=== PATIENT | female | born 1985 | race Caucasian/White ===

== ENCOUNTER 2017-05-13 20:55 | Inpatient (IN) | payer OTHER ==
[2017-05-13] MEDS ORDERED: AMPICILLIN 2 GM/100 ML BAG (PRE-DOCKED) IVPB ONE (21:00)
[2017-05-13] MEDS ORDERED: DEXTROSE 5%-LACTATED RINGERS 1,000 ML IV SCH (21:00)
[2017-05-13] MEDS ORDERED: DINOPROSTONE 10 MG VAGINAL SUPPOSITORY VG ONE (22:30)
[2017-05-13 22:53] VITALS: BMI 46.2
[2017-05-13] MEDS ORDERED: TUBERCULIN PPD 5 TU/0.1ML SYRINGE (IN PATIENT USE ONLY) ID ONE (23:30)
[2017-05-14 00:29] LABS: INR 1.01 (0.82-1.09); PROTHROMBIN TIME (PATIENT) 11.1 SEC (9.98-11.88)
[2017-05-14 00:32] LABS: ACTIVATED PTT 24.6 SECONDS (26.9-34.4)
[2017-05-14 00:41] LABS: BASOPHIL 0.3 % (0-2.0); EOSINOPHIL 1.5 % (0-4.5); MCH 31.1 pg (25.7-33.7); MCHC 33.7 g/dl (32.0-36.0); MEAN CELL VOLUME 92.1 fl (80-96); MEAN PLT VOLUME 10.5 fl (7.5-11.1); NEUTROPHILS 70.5 % (42.8-82.8); PLATELET COUNT 229 K/MM3 (134-434); RDW 13.4 % (11.6-15.6); WHITE BLOOD COUNT 7.2 K/mm3 (4.0-10.0)
[2017-05-14 00:51] LABS: ANION GAP 11 (8-16); CALCIUM 8.2 mg/dL (8.5-10.1); CO2 23 mmol/L (21-32); CREATININE 0.6 mg/dL (0.55-1.02); GLUCOSE,RANDOM 98 mg/dL (74-106)
[2017-05-14] MEDS: AMPICILLIN (PRE-DOCKED) 1 GM/100 ML BAG IVPB SCH ×4 (04:00→19:24)
[2017-05-14] MEDS ORDERED: PROMETHAZINE HCL 25 MG/1 ML VIAL IVPUSH ONE (05:00)
[2017-05-14] MEDS ORDERED: BUTORPHANOL TARTRATE 1 MG/ML VIAL IVPUSH ONE (05:00)
[2017-05-14] MEDS: LACTATED RINGERS SOLUTION 1,000 ML IV SCH ×2 (06:30)
[2017-05-14 08:51] LABS: SGOT/AST 15 U/L (15-37); SGPT/ALT 17 U/L (12-78); URIC ACID 4.6 mg/dL (2.6-7.2)
[2017-05-14] MEDS ORDERED: TUBERCULIN PPD 5 TU/0.1ML SYRINGE (IN PATIENT USE ONLY) ID ONE (09:00)
--- NOTE | 2017-05-14 09:43 | HP ---
Past Medical History - Admission Chief Complaint: Hypertension and Gestational Diabetes on diet in History of Present Illness: 31 yo G P0 EDC EGA 38.2 weeks with obesity Hypertension gestational DM on diet admitted for cervidil induction at 38 weeks on 05/13/16 History Source: Patient - Past Medical History ...: 2 ...Para: 0 ...Term: 0 ...: 0 ...Spon : 0 ...Induced : 1 ...Multiple Gestation: 0 ...LMP: 08/13/16 ... Weeks Gestation by Dates: 39.0 ...EDC by Dates: 05/20/17 ...EDC by Sono: 05/20/17 - Smoking History Smoking history: Never smoked Have you smoked in the past 12 months: No - Alcohol/Substance Use Hx Alcohol Use: No Home Medications - Allergies Allergies/Adverse Reactions: Allergies Allergy/AdvReac Type Severity Reaction Status Date / Time No Known Drug Allergies Allergy Verified 05/14/17 04:29 - Home Medications Home Medications: Ambulatory Orders Aspirin [Ecotrin] 1 tab PO DAILY 05/14/17 Labetalol HCl [Normodyne -] 200 mg PO BID 05/14/17 Vit/Iron Fumarate/FA [ Tablet] 1 each PO DAILY 05/14/17 Review of Systems - Review of Systems Constitutional: reports: No Symptoms Eyes: reports: No Symptoms HENT: reports: No Symptoms Neck: reports: No Symptoms Cardiovascular: reports: No Symptoms Respiratory: reports: No Symptoms Gastrointestinal: reports: No Symptoms Genitourinary: reports: No Symptoms Breasts: reports: No Symptoms Reported Musculoskeletal: reports: No Symptoms Integumentary: reports: No Symptoms Neurological: reports: No Symptoms Endocrine: reports: No Symptoms Hematology/Lymphatic: reports: No Symptoms Psychiatric: reports: No Symptoms Physical Exam - Maternity Vital Signs: Vital Signs Temperature 98.1 F 05/14/17 04:00 Pulse Rate 87 05/14/17 08:00 Respiratory Rate 20 05/14/17 08:00 Blood Pressure 152/92 05/14/17 08:00 O2 Sat by Pulse Oximetry (%) Constitutional: Yes: Well Nourished, No Distress - Abdominal Exam/OB Number of Fetuses: Single Presentation: Vertex Category: I - Vaginal Exam/OB Presentation: Vertex/Position - Labs Lab Results: CBC, BMP 05/13/17 23:30 05/13/17 23:30 Problem List - Problems (1) Hypertension affecting in third trimester Code(s): O16.3 - UNSPECIFIED MATERNAL HYPERTENSION, THIRD TRIMESTER (2) Obesity affecting in third trimester Code(s): O99.213 - OBESITY COMPLICATING , THIRD TRIMESTER (3) Gestational diabetes, diet controlled Code(s): O24.410 - GESTATIONAL DIABETES MELLITUS IN , DIET CONTROLLED Qualifiers: Trimester: third trimester Qualified Code(s): O24.410 - Gestational diabetes mellitus in , diet controlled Assessment/Plan obesity in gestational DM iup at 38.2 week Cat 1 Early Labor Plan Will start pitocin after cervidil
[2017-05-14 10:03] LABS: URINE APPEARANCE CLEAR; URINE BILIRUBIN NEGATIVE (NEGATIVE); URINE BLOOD 2+ (NEGATIVE); URINE COLOR YELLOW; URINE GLUCOSE (UA) NEGATIVE (NEGATIVE); URINE KETONE 1+ (NEGATIVE); URINE LEUK ESTERASE NEGATIVE (NEGATIVE); URINE NITRITE NEGATIVE (NEGATIVE); URINE PROTEIN NEGATIVE (NEGATIVE); URINE UROBILINOGEN NEGATIVE mg/dL (0.2-1.0)
[2017-05-14] MEDS: LABETALOL HCL 200 MG TABLET (FP) PO SCH ×2 (10:05→21:45)
[2017-05-14 11:44] LABS: URINE MUCUS RARE; URINE RBC 3 /hpf (0-3); URINE WBC 2 /hpf (3-5)
--- NOTE | 2017-05-14 13:55 | PN ---
Ante-Partal Exam - Subjective Subjective: Pt desires CS unable to tolerate contraction and not making progress Due to elevated BP DM HTn and elevated temp 99.6 Vital Signs: Vital Signs Temperature 99.0 F 05/14/17 12:07 Pulse Rate 79 05/14/17 12:07 Respiratory Rate 20 05/14/17 12:07 Blood Pressure 142/98 05/14/17 12:07 O2 Sat by Pulse Oximetry (%) Bleeding: No Headache: No Visual changes: No Right upper quadrant pain: No - Contractions Contractions: Yes Regularity: Irregular - Exam during Labor Category: I Monitor Accelerations: Present Monitor Decelerations: None Exam: Vaginal Dilatation (cm): ft Effacement (%): 50 Amniotic Membrane Status: Intact Presentation: Vertex Station: -3 - Intrapartum Hemorrhage Risk Medium Risk Factors: Chorioamniomitis Risk Score: 1 Risk Level: Medium Risk - Assessment/Plan Assessment/Plan: IUp at 38 weeks gestational DM Hypertension on Labetalol 400 BID Failed induction Obesity Plan primary CS Consult with renal after delivery
[2017-05-14] MEDS ORDERED: CITRIC ACID/SODIUM CITRATE 30 ML UNIT-DOSE CUP PO ONE (14:20)
[2017-05-14] MEDS ORDERED: ELECTROLYTE-148 SOLN 1,000 ML IV SCH (14:30)
[2017-05-14] MEDS ORDERED: AMPICILLIN NA/SULBACTAM NA 100 ML IVPB SCH (15:00)
[2017-05-14] MEDS ORDERED: METHYLERGONOVINE MALEATE 0.2 MG/1 ML AMP IM PRN (15:18)
[2017-05-14] MEDS ORDERED: IBUPROFEN 600 MG TABLET (FP) PO PRN ×2 (15:18→17:43)
[2017-05-14] MEDS ORDERED: OXYTOCIN 20 UNITS in 0.9% NS 1,000 ML IV SCH (15:30)
--- NOTE | 2017-05-14 17:28 | OP ---
Operative Note - Note: Operative Date: 05/14/17 Pre-Operative Diagnosis: Chronic Hypertension. Gestation DM diet. IUP at 38 week. Obesity. failed induction Operation: Primary low transverse Section. Abdominal myomectomy Findings: Live infant delivered myomas delivered Post-Operative Diagnosis: Same as Pre-op Surgeon: Kay Douglas Psychologist: David Mcgovern Anesthesia: Spinal Estimated Blood Loss (mls): 500 Operative Report Dictated: Yes
[2017-05-14] MEDS ORDERED: ONDANSETRON 4 MG/2 ML VIAL IVPB PRN (17:43)
[2017-05-14 18:42] LABS: VENOUS BLOOD GAS HCO3 24.9 meq/L (19-25); VENOUS PH 7.36 (7.32-7.42)
[2017-05-14 18:44] LABS: ARTERIAL BLOOD GAS BASE EXCESS -0.8 meq/l (-2-2); ARTERIAL BLOOD GAS HCO3 26.5 meq/L (22-26)
[2017-05-14 18:45] LABS: PT. ON O2? NO
[2017-05-14 18:46] LABS: ARTERIAL BLD GAS O2 SATURATION 17.9 % (90-98.9); ARTERIAL BLOOD GAS PO2 14.6 mmHg (80-100)
[2017-05-14] MEDS: AMPICILLIN NA/SULBACTAM NA 1.5 GM in SODIUM CHLORIDE 100 ML IVPB SCH (20:42)
[2017-05-14] MEDS ORDERED: ACETAMINOPHEN 1000 MG/100 ML VIAL (NON FORMULARY) IVPB ONE (21:33)
[2017-05-14] MEDS ORDERED: IBUPROFEN 800 MG/8 ML IJ IVPB ONE (21:34)
[2017-05-15] MEDS: AMPICILLIN NA/SULBACTAM NA 1.5 GM in SODIUM CHLORIDE 100 ML IVPB SCH ×3 (07:46→15:06)
[2017-05-15 08:12] LABS: BASOPHIL 0.4 % (0-2.0); EOSINOPHIL 0.2 % (0-4.5); MCH 30.2 pg (25.7-33.7); MCHC 32.7 g/dl (32.0-36.0); MEAN CELL VOLUME 92.4 fl (80-96); MEAN PLT VOLUME 10.3 fl (7.5-11.1); NEUTROPHILS 73.9 % (42.8-82.8); PLATELET COUNT 173 K/MM3 (134-434); RDW 13.6 % (11.6-15.6); WHITE BLOOD COUNT 11.6 K/mm3 (4.0-10.0)
[2017-05-15] MEDS: LABETALOL HCL 200 MG TABLET (FP) PO SCH ×2 (09:05→22:29)
--- NOTE | 2017-05-15 10:49 | PN ---
Progress Note, Physician Chief Complaint: Pt. pain controlled, no ASHRAF, not yet ambulating or voiding. No anesthesia complaints. - Current Medication List Current Medications: Active Medications Acetaminophen (Tylenol -) 650 mg PO Q4H PRN PRN Reason: FEVER OR PAIN Bisacodyl (Dulcolax Suppository -) 10 mg RC PRN PRN PRN Reason: CONSTIPATION Diphenhydramine HCl (Benadryl Injection -) 25 mg IVPUSH Q4H PRN PRN Reason: Pruritis Last Admin: 05/14/17 22:07 Dose: 25 mg Diphtheria/Tetanus/Acell Pertussis (Boostrix -) 0.5 ml IM .ONCE ONE Stop: 05/16/17 10:01 Oxytocin/Sodium Chloride (Normal Saline+20 Units Oxytocin -) 1,000 mls @ 125 mls/hr IV ASDIR ALIDA Last Admin: 05/14/17 18:41 Dose: 125 mls/hr Ampicillin Sodium/Sulbactam (Sodium 1.5 gm/ Sodium Chloride) 100 mls @ 200 mls/ hr IVPB Q6H-IV ALIDA Stop: 05/15/17 20:59 Last Admin: 05/15/17 08:08 Dose: 200 mls/hr Ibuprofen (Motrin -) 600 mg PO Q4H PRN PRN Reason: PAIN Labetalol HCl (Normodyne -) 200 mg PO BID ALIDA Last Admin: 05/15/17 09:05 Dose: 200 mg Methylergonovine Maleate (Methergine Injection -) 0.2 mg IM Q4H PRN PRN Reason: Excessive Bleeding (L&D) Oxycodone HCl (Roxicodone -) 5 mg PO Q4H PRN PRN Reason: PAIN LEVEL 1-5 Oxycodone HCl (Roxicodone -) 10 mg PO Q4H PRN PRN Reason: PAIN LEVEL 6-10 Simethicone (Mylicon -) 80 mg PO Q4H PRN PRN Reason: GAS - Objective Vital Signs: Vital Signs Temperature 98.0 F 05/15/17 00:00 Pulse Rate 82 05/15/17 00:00 Respiratory Rate 18 05/15/17 08:00 Blood Pressure 108/64 05/15/17 00:00 O2 Sat by Pulse Oximetry (%) 96 08/22/17 19:05 Constitutional: Yes: Well Nourished, No Distress, Calm Musculoskeletal: Yes: WNL Neurological: Yes: WNL, Alert, Oriented ...Motor Strength: WNL Labs: CBC, BMP 05/15/17 07:00 05/13/17 23:30 INR, PTT INR 1.01 (0.82-1.09) 05/13/17 23:30 Assessment/Plan POD#1 s/p under spinal with duramorph. Doing well. D/C from anesthesia care once she voids and ambulates.
[2017-05-15] MEDS: oxyCODONE HCL 5 MG TABLET PO PRN ×3 (10:56→22:29)
[2017-05-15] MEDS: SIMETHICONE 80 MG TAB.CHEW (FP) PO PRN ×2 (10:57→17:32)
[2017-05-15] MEDS: ACETAMINOPHEN 325 MG TABLET (FP) PO PRN ×3 (10:57→22:30)
[2017-05-15] MEDS ORDERED: BISACODYL 10 MG SUPP.RECT RC PRN (15:18)
[2017-05-16] MEDS: ACETAMINOPHEN 325 MG TABLET (FP) PO PRN ×2 (05:08→18:24)
[2017-05-16] MEDS: oxyCODONE HCL 5 MG TABLET PO PRN ×2 (05:09→18:23)
--- NOTE | 2017-05-16 07:48 | PN ---
Post Progress Note - Subjective Subjective: Pt seen this a.m. briefly - no complaints. POD#2 s/p primary delivery for gHTN. BPs have been in normal to mild range since delivery. Pt tolerating diet, ambulating and voiding. No CP/SOB/F/C/ASHRAF. Type of Delivery: Primary C/S Vital Signs: Vital Signs Temperature 98.1 F 05/16/17 06:00 Pulse Rate 72 05/16/17 06:00 Respiratory Rate 18 05/16/17 06:00 Blood Pressure 139/97 05/16/17 06:00 O2 Sat by Pulse Oximetry (%) 98 05/15/17 21:00 Uterus: Yes: Fundus Firm Incision: Yes: Sutures intact Abdomen/GI: Yes: Abdomen soft, Passing flatus, Tolerating PO Lochia: Yes: Rubra Lochia, amount: Small Extremities: No: Calf tenderness Perineum: Yes: Intact Activity: Ambulating - Labs Labs: CBC WBC 11.6 K/mm3 (4.0-10.0) H D 05/15/17 07:00 RBC 3.02 M/mm3 (3.60-5.2) L 05/15/17 07:00 Hgb 9.1 GM/dL (10.7-15.3) L D 05/15/17 07:00 Hct 27.9 % (32.4-45.2) L 05/15/17 07:00 MCV 92.4 fl (80-96) 05/15/17 07:00 MCH 30.2 pg (25.7-33.7) 05/15/17 07:00 MCHC 32.7 g/dl (32.0-36.0) 05/15/17 07:00 RDW 13.6 % (11.6-15.6) 05/15/17 07:00 Plt Count 173 K/MM3 (134-434) D 05/15/17 07:00 MPV 10.3 fl (7.5-11.1) 05/15/17 07:00 Neutrophils % 73.9 % (42.8-82.8) 05/15/17 07:00 Lymphocytes % 17.8 % (8-40) 05/15/17 07:00 Monocytes % 7.7 % (3.8-10.2) 05/15/17 07:00 Eosinophils % 0.2 % (0-4.5) D 05/15/17 07:00 Basophils % 0.4 % (0-2.0) 05/15/17 07:00 Retic Count 1.57 % (0.5-1.5) H 05/14/17 08:25 Haptoglobin 165 mg/dL (34-200) 05/14/17 09:00 Problem List - Problems (1) Hypertension affecting in third trimester Code(s): O16.3 - UNSPECIFIED MATERNAL HYPERTENSION, THIRD TRIMESTER (2) Obesity affecting in third trimester Code(s): O99.213 - OBESITY COMPLICATING , THIRD TRIMESTER (3) delivery delivered Code(s): O82 - ENCOUNTER FOR DELIVERY WITHOUT INDICATION Assessment/Plan 31 y/o POD#2 s/p primary delivery with gestational hypertension - AFVSS - gHTN - BP overall normal/mild range since delivery, on Labetalol 200 BID, continue to monitor, asymptomatic - regular diet, encourage ambulation - routine care
[2017-05-16] MEDS: LABETALOL HCL 200 MG TABLET (FP) PO SCH ×2 (09:46→22:12)
[2017-05-16] MEDS: ENOXAPARIN NA (PORCINE) 40 MG/0.4 ML DISP.SYRIN SQ SCH (09:48)
[2017-05-16] MEDS ORDERED: DIPHTH,PERTUSS(ACELL),TET 0.5 ML DISP.SYRIN IM ONE (10:00)
[2017-05-16] MEDS: DIPHTH,PERTUSS(ACELL),TET 0.5 ML DISP.SYRIN IM ONE ×2 (14:43→14:46)
[2017-05-16] MEDS: SIMETHICONE 80 MG TAB.CHEW (FP) PO PRN (18:23)
[2017-05-17 07:54] LABS: BASOPHIL 1.1 % (0-2.0); EOSINOPHIL 3.5 % (0-4.5); MCH 30.8 pg (25.7-33.7); MCHC 33.4 g/dl (32.0-36.0); MEAN CELL VOLUME 92.2 fl (80-96); MEAN PLT VOLUME 9.7 fl (7.5-11.1); NEUTROPHILS 63.8 % (42.8-82.8); PLATELET COUNT 201 K/MM3 (134-434); RDW 13.5 % (11.6-15.6); WHITE BLOOD COUNT 7.3 K/mm3 (4.0-10.0)
[2017-05-17] MEDS: ACETAMINOPHEN 325 MG TABLET (FP) PO PRN ×2 (09:10→22:23)
[2017-05-17] MEDS: oxyCODONE HCL 5 MG TABLET PO PRN ×2 (09:10→22:22)
[2017-05-17] MEDS: SIMETHICONE 80 MG TAB.CHEW (FP) PO PRN ×2 (09:10→22:21)
[2017-05-17] MEDS: LABETALOL HCL 200 MG TABLET (FP) PO SCH ×2 (09:11→21:18)
[2017-05-17] MEDS: ENOXAPARIN NA (PORCINE) 40 MG/0.4 ML DISP.SYRIN SQ SCH (09:11)
--- NOTE | 2017-05-17 09:12 | PN ---
Post Progress Note - Subjective Subjective: Pt seen/evaluated and doing well. Pain controlled with medications. BP stable on labetalol. Denies ASHRAF/ruq pain/changes in vision/CP/SOB. Ambulating, voiding , passing flatus. Type of Delivery: Primary C/S Vital Signs: Vital Signs Temperature 98.3 F 05/16/17 22:00 Pulse Rate 74 05/17/17 06:00 Respiratory Rate 18 05/17/17 06:00 Blood Pressure 144/81 05/17/17 06:00 O2 Sat by Pulse Oximetry (%) 98 05/15/17 21:00 Uterus: Yes: Fundus Firm, Fundus below umbilicus Incision: Yes: Sutures intact Abdomen/GI: Yes: Abdomen soft, Passing flatus, Tolerating PO. No: Tender Lochia: Yes: Rubra Lochia, amount: Small Extremities: Yes: Calves non-tender, Edema (Trace b/l LE Edema, non pitting) Perineum: Yes: Intact Activity: Ambulating - Labs Labs: CBC WBC 7.3 K/mm3 (4.0-10.0) D 05/17/17 07:09 RBC 3.22 M/mm3 (3.60-5.2) L 05/17/17 07:09 Hgb 9.9 GM/dL (10.7-15.3) L 05/17/17 07:09 Hct 29.7 % (32.4-45.2) L 05/17/17 07:09 MCV 92.2 fl (80-96) 05/17/17 07:09 MCH 30.8 pg (25.7-33.7) 05/17/17 07:09 MCHC 33.4 g/dl (32.0-36.0) 05/17/17 07:09 RDW 13.5 % (11.6-15.6) 05/17/17 07:09 Plt Count 201 K/MM3 (134-434) 05/17/17 07:09 MPV 9.7 fl (7.5-11.1) 05/17/17 07:09 Neutrophils % 63.8 % (42.8-82.8) 05/17/17 07:09 Lymphocytes % 24.1 % (8-40) D 05/17/17 07:09 Monocytes % 7.5 % (3.8-10.2) 05/17/17 07:09 Eosinophils % 3.5 % (0-4.5) D 05/17/17 07:09 Basophils % 1.1 % (0-2.0) 05/17/17 07:09 Retic Count 1.57 % (0.5-1.5) H 05/14/17 08:25 Haptoglobin 165 mg/dL (34-200) 05/14/17 09:00 Problem List - Problems (1) Hypertension affecting in third trimester Code(s): O16.3 - UNSPECIFIED MATERNAL HYPERTENSION, THIRD TRIMESTER (2) Obesity affecting in third trimester Code(s): O99.213 - OBESITY COMPLICATING , THIRD TRIMESTER (3) delivery delivered Code(s): O82 - ENCOUNTER FOR DELIVERY WITHOUT INDICATION Assessment/Plan 31 y/o POD#3 s/p primary delivery with gestational hypertension - AFVSS - gHTN - BP overall normal/mild range since delivery, on Labetalol 200 BID, continue to monitor, asymptomatic - regular diet, encourage ambulation - Lovenox for VTE PPx - routine care - if stable, ok for discharge home in a.m.
--- NOTE | 2017-05-17 12:48 | PATH ---
Surgical Pathology Report Patient Name: LEE MAYO Med. Rec. 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 Specimen(s) Received A: PLACENTA B: UTERINE FIBROIDS Clinical History 39.1 weeks, failed medical induction. Gestational diabetic-diet control, history of hypertension, obesity, scoliosis Final Diagnosis A. PLACENTA, DELIVERY: THIRD TRIMESTER PLACENTA WITH 3 VESSEL UMBILICAL CORD AND UNREMARKABLE PLACENTAL MEMBRANES. B. UTERUS, MYOMECTOMY: TWO PORTIONS OF LEIOMYOMA, AGGREGATE WEIGHT 2 GRAMS. Electronically Signed Roney Arevalo M.D. Gross Description A. The specimen is received fresh labeled placenta and is a 435 gram, 15 x 13 x 3 cm. placenta with attached membranes and umbilical cord. The attached membranes are glistening and translucent and insert marginally. The umbilical cord measures 15 cm. in length and averages 1 cm. in diameter. The cord inserts eccentrically, 2.5 cm. to the nearest margin. No true knots or strictures are identified. Cut surface of the umbilical cord reveals 3 vessels. The surface is hernandez-blue with minimal fibrin deposition and appropriate caliber vessels. The maternal surface is lobulated and appears complete with no adherent blood clots or areas of thinning. Sectioning reveals red-brown, spongy parenchyma. No lesions are identified. Parachute Crown Sewer sections are submitted in three cassettes as follows: 1- membrane rolls and umbilical cord; 2-3- full thickness sections of placenta. B. Received in formalin labelled "uterine fibroid" is 2 pieces of peterson tissue which measures 1.6 x 1.1 x 1.0 cm and the other of which measures 1.4 x 1.3 x 0.5 cm. Cut surface reveals a whorled fernandez interior. Each of the pieces is sectioned and the specimen is totally submitted in 2 cassettes. [facility]/05/16/2017 [facility]/05/16/2017
[2017-05-17] MEDS ORDERED: oxyCODONE HCL 5 MG TABLET ONE (22:17)
[2017-05-18] MEDS: LABETALOL HCL 200 MG TABLET (FP) PO SCH (09:05)
[2017-05-18] MEDS: ENOXAPARIN NA (PORCINE) 40 MG/0.4 ML DISP.SYRIN SQ SCH (09:06)
[2017-05-18 09:07] VITALS: BP 150/90; PULSE 70; TEMP 98.2
--- NOTE | 2017-05-18 09:45 | DS ---
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 Vital Signs: Vital Signs Temperature 98.2 F 05/18/17 09:05 Pulse Rate 70 05/18/17 09:05 Respiratory Rate 20 05/18/17 09:05 Blood Pressure 150/90 05/18/17 09:05 O2 Sat by Pulse Oximetry (%) 98 05/15/17 21:00 Constitutional: Yes: Well Nourished Eyes: Yes: WNL HENT: Yes: WNL Neck: Yes: Supple Cardiovascular: Yes: Regular Rate and Rhythm Respiratory: Yes: Regular, CTA Bilaterally Gastrointestinal: Yes: Normal Bowel Sounds Pelvis: Yes: WNL External Genitalia: Yes: Normal Vaginal Exam: Yes: Normal Uterus: Yes: Firm Wound/Incision: Yes: Clean/Dry, Well Approximated Neurological: Yes: Alert, Oriented ...Motor Strength: WNL Psychiatric: Yes: Alert, Oriented Labs: CBC, BMP 05/17/17 07:09 05/13/17 23:30 Delivery - Delivery Type of Anesthesia: Spinal Episiotomy/Laceration: None EBL (cc): 500 Delivery, Single - Stages of Labor Date 1st Stage Initiatied: 05/14/17 Time 1st Stage Initiated: 04:00 Date of Delivery: 05/14/17 Time of Delivery: 17:41 Time Placenta Delivered: 17:43 - Condition of Infant 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/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 Present: Yes Name: Pamela Goddard Gender: Male Weight: 7 lb 3 oz Position: OT Total Hours ROM (Hrs/Mins): 3MIN - 1 Minute Total Score: 9 5 Minutes Total Score: 9 - Feeding Plan Initial Plan: Elected not to breastfeed exclusively throughout hospitalization Discharge Summary Reason For Visit: INDUCTION Current Active Problems delivery delivered (Acute) Failed induction of labor, antepartum (Acute) Gestational diabetes, diet controlled (Acute) Hypertension affecting in third trimester (Acute) Obesity affecting in third trimester (Acute) Procedures: Principal: Primary Low Transverse Hospital Course: Routine Post op care Condition: Good - Instructions Diet, Activity, Other Instructions: Physical activity Resume your normal everyday activity as tolerated no heavy lifting or exercise until seen by your surgeon. You may walk unlimited paige of and climb stairs. You may resume driving the car when you feel safe and comfortable behind the wheel. No sexual activity as instructed. Wound care If you have a bandage, leave it on, and keep dry for 48-72 hours. After that time discard the outer bandage. If they are tapes on the skin under the out of bandage leave them in place. They will peel off in the next 7 to 10 days. Do Not Peel them off. You may shower the day after surgery. If there are tapes present on the skin, you may shower over them. Diet There are no dietary restrictions. Eat healthy, high-fiber foods. Drink 6 to 8 glasses of liquid each day. This will assist in keeping your bowels are regular. Pain management You may take Tylenol or acetaminophen or Ibuprofen (for example, Motrin, Advil etc.) from my pain prescription medication is ordered should be taken as prescribed for moderate to severe pain. Call MD for any of the following: Severe pain not relieved by medication Fever of 101 or higher Excessive bleeding or drainage on dressing Inability to urinate Referrals: Kay Douglas MD [Staff Physician] - 1 Week Disposition: HOME - Home Medications Comprehensive Discharge Medication List: Ambulatory Orders Aspirin [Ecotrin] 1 tab PO DAILY 05/14/17 Labetalol HCl [Normodyne -] 200 mg PO BID 05/14/17 Vit/Iron Fumarate/FA [ Tablet] 1 each PO DAILY 05/14/17 Labetalol HCl [Normodyne -] 200 mg PO BID #60 tablet 05/17/17 Oxycodone HCl/Acetaminophen [Percocet 5-325 mg Tablet -] 1 tab PO Q4H #30 tablet MDD 6 05/17/17
[2017-05-18] MEDS: ACETAMINOPHEN 325 MG TABLET (FP) PO PRN (13:13)
== END 2017-05-18 14:00 | disposition home or self-care (01) | DRG 540 ==
LOC: JLDR 20:55 → J3W 05-14 19:30
PROVIDERS: ADMIT Obstetrics & Gynecology; ATTEND Obstetrics & Gynecology
PROC: 10D00Z1 Extraction of Products of Conception, Low, Open Approach (ICD-10-PCS; principal; 2017-05-14)
PROC: 3E0P7GC Introduction of Other Therapeutic Substance into Female Reproductive, Via Natural or Artificial Opening (ICD-10-PCS; 2017-05-14)
DX: O62.0 Primary inadequate contractions (principal); O13.4 Gestational [pregnancy-induced] hypertension without significant proteinuria, complicating childbirth; O24.420 Gestational diabetes mellitus in childbirth, diet controlled; O99.214 Obesity complicating childbirth; E66.01 Morbid (severe) obesity due to excess calories; Z68.42 Body mass index [BMI] 45.0-49.9, adult; Z3A.38 38 weeks gestation of pregnancy; Z37.0 Single live birth
CPT/HCPCS: 36415; 36600; 80048; 81003; 81015; 82803; 82977; 83010; 84450; 84460; 84550; 85025; 85044; 85610; 85730; 86593; 86850; 86900; 86901; 88305-TC; 88307-TC; 90715

== ENCOUNTER 2019-08-06 04:43 | Day surgery (SDC) | payer OTHER ==
[2019-08-04 17:21] VITALS: BMI 50.1
[2019-08-06] MEDS ORDERED: ONDANSETRON 4 MG/2 ML VIAL IVPUSH PRN (08:57)
[2019-08-06] MEDS ORDERED: LACTATED RINGERS SOLUTION 1,000 ML IV SCH (09:00)
[2019-08-06 09:05] LABS: HCG,QUALITATIVE URINE Negative
[2019-08-06 09:07] LABS: EPI CELLS 5.7 /HPF (0-5/HPF); HYALINE CASTS 13 /lpf (0-8); PH,URINE 5.5 (5.0-8.0); URINE APPEARANCE CLOUDY; URINE BACTERIA 94.5 /hpf (NEGATIVE); URINE BILIRUBIN NEGATIVE (NEGATIVE); URINE COLOR YELLOW; URINE GLUCOSE (UA) NEGATIVE (NEGATIVE); URINE KETONE NEGATIVE (NEGATIVE); URINE LEUK ESTERASE TRACE (NEGATIVE); URINE NITRITE NEGATIVE (NEGATIVE); URINE PROTEIN NEGATIVE (NEGATIVE); URINE RBC 5 /hpf (0-4); URINE UROBILINOGEN 0.2 mg/dL (0.2-1.0); URINE WBC 9 /hpf (0-5)
[2019-08-06] MEDS ORDERED: DESFLURANE GAS 240 ML BOTTLE IH ONE (09:08)
[2019-08-06] MEDS ORDERED: SEVOFLURANE 250 ML BTL ONE (09:08)
[2019-08-06 09:14] LABS: INR 1.05 (0.83-1.09); PROTHROMBIN TIME (PATIENT) 12.4 SEC (9.7-13.0)
[2019-08-06 09:17] LABS: ACTIVATED PTT 29.9 SECONDS (25.2-36.5)
[2019-08-06] MEDS ORDERED: MIDAZOLAM HCL 2 MG/2 ML SINGLE DOSE VIAL ONE (10:12)
[2019-08-06] MEDS ORDERED: fentaNYL CITRATE 250 MCG/5 ML VIAL ONE (10:12)
[2019-08-06] MEDS ORDERED: LIDOCAINE HCL/PF 2% SDV 5ML VIAL ONE (10:12)
[2019-08-06] MEDS ORDERED: ROCURONIUM BROMIDE 50 MG/5 ML SYRINGE ONE (10:12)
[2019-08-06] MEDS ORDERED: DEXAMETHASONE SOD PHOSPHATE 4 MG/1 ML VIAL ONE (10:12)
[2019-08-06] MEDS ORDERED: PROPOFOL 20 ML ONE ×2 (10:12)
--- NOTE | 2019-08-06 10:13 | HP ---
History & Physical Update - History History: No Change - Physical Physical: No Change - Assessment Assessment: No Change - Plan Plan: No Change (Full H&P in paper chart from 07/21/[address] Carmichael)
[2019-08-06] MEDS ORDERED: ceFAZolin SODIUM 1 GM VIAL ONE (10:36)
[2019-08-06] MEDS ORDERED: ceFAZolin SODIUM 1 GM VIAL IVPB ONE (10:38)
[2019-08-06] MEDS ORDERED: BUPIVACAINE HCL/PF 0.5% (5 MG/ML) 30 ML VIAL IJ ONE ×2 (10:55)
[2019-08-06] MEDS ORDERED: KETOROLAC TROMETHAMINE 30 MG/1 ML VIAL ONE (11:18)
[2019-08-06] MEDS ORDERED: NEOSTIGMINE METHYLSULFATE 0.5 MG/ML - 10 ML MDV ONE (11:18)
[2019-08-06] MEDS ORDERED: GLYCOPYRROLATE 0.2 MG/1 ML VIAL ONE (11:18)
--- NOTE | 2019-08-06 11:49 | OP ---
Operative Note - Note: Operative Date: 08/06/19 Pre-Operative Diagnosis: Ovarian cyst Operation: Laproscopic bilateral ovarian cystectomy, lysis of adhesions Post-Operative Diagnosis: Same as Pre-op Surgeon: Kay Douglas Straight Line Edger: Yung Alvarez Anesthesiologist/EDUCATION COUNSELOR: Lamar Mcleod Anesthesia: General Estimated Blood Loss (mls): 5 Operative Report Dictated: Yes
--- NOTE | 2019-08-06 11:50 | SURG ---
Surgery Spiral Tube Winder Helper Note Spiral Tube Winder Helper: Yung Alvarez PA-C Date of Service: 08/06/19 Diagnosis: Ovarian cysts Procedure: Laproscopic bilateral ovarian cystectomy, lysis of adhesions I was present for the entirety of the operative procedure. For further detail, please refer to operative report. Visit type - Case Type Case Type: Scheduled - Emergency Emergency Visit: No - New patient This patient is new to me today: Yes Date on this admission: 08/06/19 - Critical Care Critical Care patient: No
[2019-08-06 15:11] VITALS: BP 148/76; PULSE 63; TEMP 98
--- NOTE | 2019-08-12 14:00 | PATH ---
Surgical Pathology Report Patient Name: LEE MAYO [facility]. Rec. #: [id number] /Age/Gender: 1985 (Age: 33) / F Account: [id number] Location: [facility] SURGICAL Taken: 08/06/2019 Received: 08/06/2019 Reported: 08/12/2019 Physicians: Kay Douglas M.D. Specimen(s) Received A: RIGHT OVARIAN CYST B: LEFT OVARIAN CYST Clinical History Menorrhagia, right ovarian cystectomy Final Diagnosis A. OVARIAN CYST, RIGHT, LAPAROSCOPIC CYSTECTOMY CONSISTENT WITH PARATUBAL CYST. DENSE TUBO-OVARIAN ADHESIONS. B. OVARIAN CYST, LEFT, LAPAROSCOPIC CYSTECTOMY: FRAGMENTS OF OVARIAN PARENCHYMA WITH CYSTIC FOLLICLES, ENDOSALPINGOSIS, AND ASSOCIATED MICROCALCIFICATIONS. DENSE TUBO-OVARIAN ADHESIONS. Electronically Signed Grecia England M.D. Gross Description A. Received in formalin labeled "right ovarian cyst," is a 1.1 x 1.0 x 0.3 cm peterson fernandez, intact, translucent cyst. The outer surface is smooth. The specimen is submitted in toto in one cassette. B. Received in formalin labeled "left ovarian cyst," is a 2.7 x 2.3 x 0.2 cm aggregate of multiple unoriented portions of peterson-fernandez soft tissue, possibly consistent with a disrupted cyst. The larger portions are sectioned and the specimen is entirely submitted in 2 cassettes. DL/08/07/2019 [place]udi08/07/2019
--- NOTE | 2019-08-13 14:01 | OP ---
DATE OF OPERATION: 08/06/2019 PREOPERATIVE DIAGNOSIS: Ovarian cyst. OPERATION: Laparoscopic bilateral ovarian cystectomy and lysis of adhesions. POSTOPERATIVE DIAGNOSIS: Ovarian cyst. SURGEON: Kay Douglas MD FINISHER FIBERGLASS BOAT PARTS: NURSE POTATO INSPECTOR: Lamar Mcleod CRNA ANESTHESIA: General. ESTIMATED BLOOD LOSS: 5 mL PROCEDURE: Patient was taken to the operating room, placed in dorsal lithotomy position, prepped and draped in the usual sterile fashion. A timeout was performed in accordance with hospital regulation. A De La Garza catheter was inserted into the bladder. Attention was then drawn to the umbilicus where a 5-mm umbilical incision was made. Veress needle was inserted into the cavity. Approximately 3-4 L of CO2 was insufflated in the cavity. Veress needle was then removed and a 5-mm trocar was then inserted. Two trocars were placed in the lower abdomen, 5 cm, after skin incision was made with the scalpel. Trocars were inserted under direct visualization. Endoshears and grasper were then used to grasp the left tube which was noted to be normal and left ovary which was noted to have cyst. Cystectomy was then performed using sharp technique on the cyst with the Endoshears and then blunt technique for removal of the cyst. Cyst was submitted to Pathology. Some adhesions were noted and lysis of adhesions had been done. Same procedure was repeated on the right side. A cyst was noted on the right and Endoshears were then used to enter the cyst and blunt dissection was then used to remove the cyst. The cyst was submitted to Pathology. Hemostasis was achieved. Cautery of the ovary was done to achieve hemostasis. After cystectomy was performed, all instruments were removed. CO2 was removed from the abdomen. The incisions were then closed using 4-0 Biosyn suture in subcuticular fashion. Wound was washed and dressed. Patient tolerated procedure well. KAY DOUGLAS M.D. [id number]
== END 2019-08-06 14:45 | disposition home or self-care (01) ==
LOC: JASU-SURG 04:43
PROVIDERS: ATTEND Obstetrics & Gynecology
PROC: 0UB24ZZ Excision of Bilateral Ovaries, Percutaneous Endoscopic Approach (ICD-10-PCS; principal; 2019-08-06 10:44)
DX: N83.292 Other ovarian cyst, left side (principal); N83.291 Other ovarian cyst, right side; I10 Essential (primary) hypertension; E66.01 Morbid (severe) obesity due to excess calories
CPT/HCPCS: 36415; 81003; 84703; 85610; 85730; 86850; 86900; 86901; 88304-TC; 94760

== ENCOUNTER 2019-11-06 01:32 | Emergency (ER) | payer OTHER ==
[2019-11-06 02:13] VITALS: TEMP 97.6; BMI 50.1
--- NOTE | 2019-11-06 02:20 | PDOC ---
History of Present Illness - General Chief Complaint: Syncope/Near Syncope Stated Complaint: SYNCOPE Time Seen by Provider: 11/06/19 02:11 Past History - Past Medical History Allergies/Adverse Reactions: Allergies Allergy/AdvReac Type Severity Reaction Status Date / Time No Known Drug Allergies Allergy Verified 11/06/19 02:01 Home Medications: Ambulatory Orders Labetalol HCl [Normodyne -] 300 mg PO BID 08/04/19 Oxycodone HCl/Acetaminophen [Percocet 5-325 mg Tablet] 1 tab PO Q6H #10 tablet MDD 4 08/06/19 Asthma: No Cancer: No Cardiac Disorders: No Diabetes: Yes HTN: Yes Thyroid Disease: No - Psycho Social/Smoking Cessation Hx Smoking History: Never smoked Have you smoked in the past 12 months: No Information on smoking cessation initiated: No Hx Alcohol Use: No Drug/Substance Use Hx: No Substance Use Type: None Hx Substance Use Treatment: No *Physical Exam - Vital Signs Last Vital Signs Temp Pulse Resp BP Pulse Ox 97.6 F 90 20 116/72 97 11/06/19 02:01 11/06/19 02:01 11/06/19 02:01 11/06/19 02:01 11/06/19 02:01 ED Treatment Course - LABORATORY CBC & Chemistry Diagram: 11/06/19 03:05 11/06/19 03:05 Medical Decision Making - Medical Decision Making 11/06/19 04:03 HPI: 34yo F hx obesity and HTN presents from home with 2 episodes of syncope this PM in setting of 1wk of dry cough, watery NB diarrhea (3x/day), nausea, decreased appetite, congestion, rhinorrhea, sinus pressure, myalgias, and chills. Congestion, sinus pressure, rhinorrhea, and myalgias resolved. Endorses sick contacts. Denies flu shot, recent travel. Tonight pt passed BM normally in bathroom without straining then stood up at 2300 and suddenly felt lightheaded/ vertigo and blurred vision and passed out. Family heard noise from other room and immediately came to bathroom and found her waking up in bathtub. Denies head injury, N/V after syncope, headache. At approximately 2330, pt was still recovering and stood up and passed out again, witness, confused/out of it for 3 minutes before waking up and able to stand/walk. No hx similar sx, cardiac hx, syncope hx, family hx cardiac problems or SCD. Denies seizure-like activity. Slight decrease in appetite but eating/drinking relatively normally. Denies . ROS: Constitutional: Positive for chills, diaphoresis, fatigue. Negative for fever. HENT: Positive for rhinorrhea, congestion, sinus pressure. Negative for sore throat. Eyes: Negative for visual disturbance. Respiratory: Positive for cough. Negative for shortness of breath, and wheezing. Cardiovascular: Negative for chest pain, palpitations, and leg swelling. Gastrointestinal: Positive for diarrhea, nausea. Negative for abdominal pain, blood in stool, constipation, and vomiting. Genitourinary: Negative for dysuria, flank pain, and hematuria. Musculoskeletal: Positive for myalgias. Negative for back pain, and neck pain. Skin: Negative for rash. Neurological: Positive for light-headedness, vertigo, syncope. Negative for weakness, numbness and headaches. Psychiatric/Behavioral: Negative for behavioral problems and confusion. PE: Gen: Alert, NAD, comfortable-appearing. HEENT: PERRL, EOMI, MMM, NCAT. No conjunctival pallor. Sclera are non-icteric. Oropharynx is clear. CV: Regular rate and rhythm. No murmurs, rubs, or gallops. PULM: No resp distress. CTAB, no wheezes, rales, or rhonchi. ABD: soft, NT/ND, no rebound tenderness or guarding, no CVA tenderness. BACK: No TTP of c/t/l-spine. No step-offs or deformities. MSK: No bony deformities. 2+ pulses in all extremities. NEURO: AAOx3. PERRL. No gross CN deficits. Strength and sensation grossly intact throughout. EXTREMITIES: No cyanosis. No clubbing. No edema. No calf tenderness. PSYCH: Normal mood and thought pattern. SKIN: Warm and dry. Normal capillary refill. No rashes. No jaundice. MDM 34yo F hx obesity and HTN presents from home with 2 episodes of syncope this PM in setting of 1wk of cough, diarrhea, nausea, decreased appetite, congestion, rhinorrhea, sinus pressure, myalgias, and chills. Hemodynamically stable, afebrile, neurologically intact. Ddx: most likely vasovagal or orthostatic syncope/hypotension. Also consider , anemia, arrhythmia, infection, metabolic derangement, anemia, dehydration 2/2 URI or gastroenteritis. No e/o of seizure. -EKG -Labs for syncope including HCG, cardiac profile -Orthostatics -IVF -Dispo: pending workup and reassessment, likely d/c home 11/06/19 04:12 EKG reviewed: NSR w/sinus arrhythmia, 76bpm, FL interval 168ms, QTc 463ms, no e/ o acute ischemia, no prior EKGs for comparison, no e/o long QT/WPW/Brugada or other concerning arrhythmia Labs reviewed. No concerning findings. Feeling better. Finish IVF then d/c. Will discharge home with PCP f/u. Return precautions given. Pt understands all discharge instructions and all questions were answered. Discharge - Discharge Information Problems reviewed: Yes Clinical Impression/Diagnosis: Syncope and collapse Condition: Improved Disposition: HOME - Admission No - Follow up/Referral Referrals: Liz Carmichael MD [Primary Care Provider] - - Patient Discharge Instructions Patient Printed Discharge Instructions: DI for Syncope in Adults (Fainting) Additional Instructions: You have been seen in the Emergency Department for your episode of dizziness and fainting. Your EKG and labs show no signs concerning for an emergent condition such as a heart attack, abnormal heart rhythm, anemia, or infection. The cause of your episode is uncertain but it was most likely what's called vasovagal syncope - see below for more information on this. At this time it's most important to stay hydrate by drinking lots of fluids. Follow-up with your primary care doctor within 1 week for further evaluation and check-up. Return to the ED immediately if you experience chest pain, difficulty breathing , dizziness, fainting, vomiting, or any other new or worsening symptom. Vasovagal syncope (fainting): To remain conscious, a supply of oxygen-rich blood must be pumped to the brain without interruption. If the brain is deprived of this blood supply, even for a brief period, loss of consciousness (passing out) will occur. One of the most common types of syncope is called vasovagal syncope, which is the most common cause of reflex syncope. A variety of conditions can trigger vasovagal syncope, including physical or psychological stress, dehydration, bleeding, or pain. The heart rate may slow dramatically at the time of the faint, and the blood vessels (mainly the veins) in the body expand, causing blood to pool in the lower extremities and the bowels, resulting in less blood return to the heart and a low blood pressure (hypotension). This causes a decrease in blood flow to the brain. In some cases, vasovagal syncope is triggered by an emotional response to a stimulus, such as fear of injury, heat exposure, the sight of blood, or extreme pain. In other cases, it is caused by abnormal nervous system responses to activities such as urinating, having a bowel movement, coughing, or swallowing. In still other cases, no trigger can be identified. In most cases of vasovagal syncope, you have some warning that you are near fainting. These signs include dizziness, feeling hot or cold, nausea, pale skin , "tunnel-like" vision, disturbance of hearing, and profuse sweating. After the episode, symptoms may continue because of continued low blood pressure. Some people feel extremely tired. - Post Discharge Activity
--- NOTE | 2019-11-06 02:48 | PDOC ---
Attending Attestation - Resident Resident Name: Adry Seymour - ED Attending Attestation I have performed the following: I have examined & evaluated the patient, The case was reviewed & discussed with the resident, I agree w/resident's findings & plan, Exceptions are as noted - HPI HPI: 11/12/19 20:31 See resident HPI - Physicial Exam PE: 11/12/19 20:32 Agree with documented exam - Medical Decision Making 11/12/19 20:32 34F pmh HTN, obese here with 1 week of viral syndrome/gastroenteritis c/b 2 episodes of syncope this evening Given hpi, syncope less likely to be cardiogenic in etiology but will evaluate f/u labs, ekg, hcg IVF dispo per clinical course EKG reassuring, no evidence of worrisome morphology/arrythmia symptomatically improved after volume expansion dc with pcp f/u
[2019-11-06] MEDS ORDERED: SODIUM CHLORIDE 0.9% 500 ML INFUS.BAG IV ONE (03:05)
[2019-11-06 03:43] LABS: BASO % 0.3 % (0-2.0); EOS % 0.3 % (0-4.5); HEMATOCRIT 41.1 % (32.4-45.2); HEMOGLOBIN 13.7 GM/dL (10.7-15.3); LYMPH % 13.3 % (8-40); MCH 30.3 pg (25.7-33.7); MCHC 33.4 g/dl (32.0-36.0); MEAN CELL VOLUME 90.8 fl (80-96); MEAN PLT VOLUME 11.6 fl (7.5-11.1); MONO % 4.5 % (3.8-10.2); NEUT % 81.6 % (42.8-82.8); PLATELET COUNT 191 K/MM3 (134-434); RBC 4.53 M/mm3 (3.60-5.2); RDW 13.9 % (11.6-15.6); WHITE BLOOD COUNT 8.2 K/mm3 (4.0-10.0)
[2019-11-06 03:58] LABS: ALK PHOS 58 U/L (45-117); ANION GAP 7 MMOL/L (8-16); BILIRUBIN,TOTAL 0.6 mg/dL (0.2-1); BLOOD UREA NITROGEN 9.7 mg/dL (7-18); CALCIUM 8.8 mg/dL (8.5-10.1); CHLORIDE 104 mmol/L (98-107); CO2 26 mmol/L (21-32); CREATININE 1.3 mg/dL (0.55-1.3); GLUCOSE,RANDOM 125 mg/dL (74-106); LIPASE 98 U/L (73-393); MAGNESIUM 2.1 mg/dL (1.8-2.4); PHOSPHOROUS 2.2 mg/dL (2.5-4.9); POTASSIUM 4.2 mmol/L (3.5-5.1); SGOT/AST 36 U/L (15-37); SGPT/ALT 27 U/L (13-61); SODIUM 137 mmol/L (136-145); TOT PROT 8.5 g/dl (6.4-8.2)
[2019-11-06 04:49] VITALS: PULSE 76
[2019-11-06 04:50] VITALS: BP 114/72
--- NOTE | 2019-11-06 15:07 | EKG ---
Test Reason : Blood Pressure : / mmHG Vent. Rate : 076 BPM Atrial Rate : 076 BPM P-R Int : 168 ms QRS Dur : 090 ms QT Int : 412 ms P-R-T Axes : 013 001 010 degrees QTc Int : 463 ms NORMAL SINUS RHYTHM WITH SINUS ARRHYTHMIA MINIMAL VOLTAGE CRITERIA FOR LVH, MAY BE NORMAL VARIANT NO PREVIOUS ECGS AVAILABLE Confirmed by TRISHA MILLER MD ([id number]) on 11/06/2019 3:07:05 PM Referred By: Confirmed By:TRISHA MILLER MD
== END 2019-11-06 04:49 | disposition home or self-care (01) ==
LOC: JER 01:32
DX: R55 Syncope and collapse (principal); I10 Essential (primary) hypertension; E11.9 Type 2 diabetes mellitus without complications
CPT/HCPCS: 36415; 80053; 82550; 82553; 83690; 83735; 84100; 84484; 84702; 85025; 93005; 93010; 99284-25

== ENCOUNTER 2024-06-23 15:15 | Day surgery (SDC) | payer BC ==
[2024-06-23 15:22] VITALS: BMI 48.9
[2024-06-23] MEDS ORDERED: ACETAMINOPHEN INJECTION 100 ML ONE (15:34)
[2024-06-23] MEDS ORDERED: ONDANSETRON 4 MG/2 ML VIAL ONE ×2 (15:35→20:05)
[2024-06-23 16:02] LABS: HEMATOCRIT 32.7 % (32.4-45.2); HEMOGLOBIN 10.3 GM/dL (10.7-15.3); MCH 24.1 pg (25.7-33.7); MCHC 31.4 g/dl (32.0-36.0); MEAN CELL VOLUME 76.9 fl (80-96); MEAN PLT VOLUME 8.9 fl (7.5-11.1); PLATELET COUNT 399 10^3/uL (134-434); RBC 4.25 M/mm3 (3.60-5.2); RDW 17.7 % (11.6-15.6); WHITE BLOOD COUNT 12.8 K/mm3 (4.0-10.0)
[2024-06-23] MEDS: ONDANSETRON 4 MG/2 ML VIAL IVPUSH ONE ×2 (16:21→20:33)
[2024-06-23] MEDS: ACETAMINOPHEN 1000 MG/100 ML BAG IVPB ONE (16:21)
[2024-06-23] MEDS: SODIUM CHLORIDE 0.9% 500 ML INFUS.BAG IV ONE (16:22)
[2024-06-23 16:59] LABS: ANISOCYTOSIS 1+; MACROCYTOSIS 0
[2024-06-23 16:59] LABS: POTASSIUM 5.5 mmol/L (3.5-5.1)
[2024-06-23 17:01] LABS: CALCIUM 9.2 mg/dL (8.5-10.1)
[2024-06-23 17:02] LABS: ALBUMIN 3.5 g/dl (3.4-5.0); BLOOD UREA NITROGEN 9.5 mg/dL (7-18)
[2024-06-23 17:05] LABS: CREATININE 1.1 mg/dL (0.55-1.3)
[2024-06-23 17:06] LABS: BILIRUBIN,TOTAL 1.1 mg/dL (0.2-1); TOT PROT 8.3 g/dl (6.4-8.2)
[2024-06-23] MEDS ORDERED: MORPHINE SULFATE 2 MG/ML SYRINGE ONE ×2 (19:00→19:20)
[2024-06-23] MEDS ORDERED: PIPERACILLIN/TAZOB 3.375 GM 3.375 GM/50 ML BAG IVPB ONE (19:01)
[2024-06-23 19:03] LABS: EPI CELLS >36 /uL (0-25.1); HYALINE CASTS 7 /uL (0-3.1); PH,URINE 5.5 (5.0-8.0); URINE APPEARANCE CLOUDY; URINE BACTERIA 198 /uL (0-1359); URINE BILIRUBIN 1+ (NEGATIVE); URINE COLOR DK YELLOW; URINE GLUCOSE (UA) NEGATIVE (NEGATIVE); URINE KETONE 1+ (NEGATIVE); URINE LEUK ESTERASE NEGATIVE (NEGATIVE); URINE NITRITE NEGATIVE (NEGATIVE); URINE PROTEIN 1+ (NEGATIVE); URINE RBC 12 /uL (0-23.9); URINE WBC 27 /uL (0-25.8)
[2024-06-23] MEDS: PIPERACILLIN/TAZOB 3.375 GM 3.375 GM in DEXTROSE 5%-WATER - 50 ML IVPB ONE (19:13)
[2024-06-23] MEDS: morphine CARPU-JECT 2 MG/1 ML DISP.SYRIN IVPUSH ONE (19:29)
[2024-06-23] MEDS: ONDANSETRON 4 MG/2 ML VIAL IVPUSH PRN (20:14)
[2024-06-23] MEDS ORDERED: ACETAMINOPHEN 500 MG TABLET (FP) PO PRN (20:31)
[2024-06-23] MEDS: LACTATED RINGERS SOLUTION 1,000 ML/1,000 ML INFUS.BAG IV SCH (22:47)
[2024-06-24] MEDS ORDERED: ACETAMINOPHEN INJECTION 100 ML ONE ×2 (01:11→17:14)
[2024-06-24] MEDS: ACETAMINOPHEN 1000 MG/100 ML BAG IVPB PRN (01:17)
[2024-06-24] MEDS: PIPERACILLIN/TAZOB 3.375 GM 3.375 GM in DEXTROSE 5%-WATER - 50 ML IVPB SCH (02:53)
[2024-06-24] MEDS ORDERED: PIPERACILLIN/TAZOB 3.375 GM 3.375 GM in DEXTROSE 5%-WATER - 50 ML IVPB SCH ×2 (03:00→18:00)
[2024-06-24] MEDS: KETOROLAC TROMETHAMINE 15 MG/ML VIAL IM ONE (06:13)
[2024-06-24 10:09] LABS: HEMATOCRIT 27.2 % (32.4-45.2); HEMOGLOBIN 8.5 GM/dL (10.7-15.3); MCH 24.2 pg (25.7-33.7); MCHC 31.1 g/dl (32.0-36.0); MEAN PLT VOLUME 9.3 fl (7.5-11.1); PLATELET COUNT 319 10^3/uL (134-434); RBC 3.49 M/mm3 (3.60-5.2); WHITE BLOOD COUNT 11.7 K/mm3 (4.0-10.0)
[2024-06-24 10:12] LABS: INR 1.33 (0.83-1.09); PROTHROMBIN TIME (PATIENT) 15.2 SEC (9.7-13.0)
[2024-06-24 10:23] LABS: POTASSIUM 3.7 mmol/L (3.5-5.1)
[2024-06-24 10:28] LABS: ALBUMIN 2.9 g/dl (3.4-5.0); CALCIUM 8.7 mg/dL (8.5-10.1)
[2024-06-24 10:29] LABS: BLOOD UREA NITROGEN 10.6 mg/dL (7-18); MAGNESIUM 1.9 mg/dL (1.8-2.4)
[2024-06-24 10:32] LABS: PHOSPHOROUS 3.4 mg/dL (2.5-4.9)
[2024-06-24 10:33] LABS: BILIRUBIN,TOTAL 1.3 mg/dL (0.2-1); TOT PROT 6.5 g/dl (6.4-8.2)
[2024-06-24] MEDS ORDERED: BUPIVACAINE HCL/PF 0.25% (2.5MG/ML) 10 ML VIAL ONE ×3 (13:00→13:47)
[2024-06-24] MEDS ORDERED: MIDAZOLAM HCL 2 MG/2 ML SINGLE DOSE VIAL ONE ×2 (13:25→14:31)
[2024-06-24] MEDS ORDERED: PROPOFOL 20 ML ONE (13:25)
[2024-06-24] MEDS ORDERED: ROCURONIUM BROMIDE 50 MG/5 ML SYRINGE ONE (13:25)
[2024-06-24] MEDS ORDERED: HEPARIN NA (PORCINE) 5,000 UNITS/ML 1ML VIAL ONE (14:35)
[2024-06-24] MEDS ORDERED: cefOXitin SODIUM 2 GM VIAL (RESTRICTED TO ID) IVPB ONE (14:36)
[2024-06-24] MEDS: cefOXitin SODIUM 2 GM VIAL (RESTRICTED TO ID) IVPB ONE ×2 (15:18)
[2024-06-24] MEDS: BUPIVACAINE HCL/PF 0.25% (2.5MG/ML) 10 ML VIAL IJ ONE ×2 (15:35)
[2024-06-24] MEDS ORDERED: ONDANSETRON 4 MG/2 ML VIAL ONE (15:50)
[2024-06-24] MEDS ORDERED: DEXAMETHASONE SOD PHOSPHATE 4 MG/1 ML VIAL ONE (15:50)
[2024-06-24] MEDS ORDERED: SUGAMMADEX SODIUM 200 MG/2 ML VIAL ONE (16:08)
[2024-06-24] MEDS ORDERED: ONDANSETRON 4 MG/2 ML VIAL IVPUSH PRN ×2 (16:40→17:06)
[2024-06-24] MEDS ORDERED: LACTATED RINGERS SOLUTION 1,000 ML IV SCH (16:45)
[2024-06-24] MEDS: ACETAMINOPHEN 1000 MG/100 ML BAG IVPB SCH (17:14)
[2024-06-24] MEDS: SODIUM CHLORIDE 1,000 ML IV SCH (17:37)
[2024-06-24] MEDS: PIPERACILLIN/TAZOB 4.5 GM 4.5 GM in DEXTROSE 5%-WATER 100 ML IVPB SCH (17:40)
[2024-06-24 20:10] VITALS: RESP 18
[2024-06-24] MEDS: HEPARIN NA (PORCINE) 5,000 UNITS/ML 1ML VIAL SQ SCH (21:50)
[2024-06-24] MEDS: oxyCODONE HCL 5 MG TABLET PO PRN (22:52)
[2024-06-25] MEDS: morphine SULFATE 4 MG/ML VIAL IVPUSH PRN (06:51)
[2024-06-25 09:03] LABS: BASO % 0.2 % (0-2.0); EOS % 0.4 % (0-4.5); HEMATOCRIT 25.7 % (32.4-45.2); HEMOGLOBIN 7.8 GM/dL (10.7-15.3); LYMPH % 11.2 % (8-40); MCH 23.9 pg (25.7-33.7); MCHC 30.5 g/dl (32.0-36.0); MEAN CELL VOLUME 78.5 fl (80-96); MEAN PLT VOLUME 8.4 fl (7.5-11.1); MONO % 8.3 % (3.8-10.2); NEUT % 79.9 % (42.8-82.8); PLATELET COUNT 313 10^3/uL (134-434); RBC 3.28 M/mm3 (3.60-5.2); RDW 18.1 % (11.6-15.6); WHITE BLOOD COUNT 11.1 K/mm3 (4.0-10.0)
[2024-06-25 09:29] LABS: POTASSIUM 3.7 mmol/L (3.5-5.1)
[2024-06-25 09:33] LABS: BLOOD UREA NITROGEN 8.2 mg/dL (7-18); CALCIUM 8.2 mg/dL (8.5-10.1)
[2024-06-25 09:36] LABS: CREATININE 0.8 mg/dL (0.55-1.3)
[2024-06-25] MEDS: ACETAMINOPHEN 500 MG TABLET (FP) PO PRN (10:17)
[2024-06-25 18:24] VITALS: BP 134/84; PULSE 89; TEMP 98.8
== END 2024-06-25 19:54 | disposition home or self-care (01) ==
LOC: JER 15:15 → UNDOADMOB 18:48 → JERBED 18:48 → INTOOBSV 18:48 → JERBED 19:42 → UNDOADMOB 19:42 → OBSVTOIN 19:42 → INTOOBSV 19:42 → J6W 06-24 02:22 → JERBED 06-24 02:22 → JASUSAT 06-24 13:14 → J6W 06-24 13:14 → JASUSAT 06-25 19:54
PROVIDERS: ATTEND Internal Medicine
PROC: 0DTJ4ZZ Resection of Appendix, Percutaneous Endoscopic Approach (ICD-10-PCS; principal; 2024-06-24 16:30)
DX: K35.80 Unspecified acute appendicitis (principal); D72.829 Elevated white blood cell count, unspecified; N83.201 Unspecified ovarian cyst, right side
CPT/HCPCS: 36415; 74177-TC; 76830-TC; 80048; 80053; 81003; 83690; 83735; 84100; 84703; 85025; 85027; 85610; 86850; 86900; 86901; 87070; 87076; 87205; 88304-TC; 93005; 93010; 94760; 99285-25; J0131; J1644; Q9967